=== PATIENT | female | born 1985 ===

== ENCOUNTER 2020-02-16 11:16 | Outpatient (CLI) | payer MEDICAID ==
[~2020-02-16] VITALS: Ht 154.9 cm; Wt 127.3 kg
[2020-02-16 12:07] VITALS: BP 121/79
[2020-02-16 12:11] LABS: MICROSCOPIC NOT IND
[2020-02-16 12:24] LABS: AMPHETAMINE SCREEN, URINE Negative (Negative); BARBITURATE SCREEN, URINE Negative (Negative); BENZODIAZEPINE SCREEN, URINE Negative (Negative); CANNABINOID SCREEN, URINE Negative (Negative); COCAINE SCREEN, URINE Negative (Negative); METHADONE SCREEN, URINE Negative (Negative); OPIATE SCREEN, URINE Negative (Negative)
[2020-02-16 13:46] LABS: BASOPHILS % (AUTO) 0 % (0-1); EOSINOPHILS % (AUTO) 1 % (1-7); LYMPHOCYTES % (AUTO) 18 % (22-44); MEAN CORPUSCULAR HEMOGLOBIN 30.9 pg (27.0-34.8); MEAN CORPUSCULAR HGB CONC 34.1 g/dL (32.4-35.8); MEAN PLATELET VOLUME 9.2 fL (7.4-10.4); MONOCYTES % (AUTO) 9 % (2-9); NEUTROPHILS % (AUTO) 71 % (42-75); PLATELET COUNT 195 x10^3/uL (130-400); RED BLOOD COUNT 4.32 x10^6/uL (3.82-5.3); RED CELL DISTRIBUTION WIDTH 13.6 % (9.6-15.2)
[2020-02-16 14:02] LABS: MD NO
== END 2020-02-16 13:40 | disposition home or self-care (01) ==
LOC: LDOP 11:16
PROVIDERS: ATTEND Obstetrics & Gynecology
DX: O99.513 Diseases of the respiratory system complicating pregnancy, third trimester (principal); O26.893 Other specified pregnancy related conditions, third trimester; R10.9 Unspecified abdominal pain; R53.1 Weakness; R06.02 Shortness of breath; Z3A.33 33 weeks gestation of pregnancy
CPT/HCPCS: 36415; 59025; 80307; 81003; 84112; 84443; 85025; 87086

== ENCOUNTER 2020-03-13 17:41 | Outpatient (CLI) | payer MEDICAID ==
[~2020-03-13] VITALS: Ht 154.9 cm; Wt 128.6 kg
[2020-03-13 17:58] VITALS: BP 125/84
[2020-03-13] MEDS ORDERED: FLUO20CA19 PO (18:38)
[2020-03-13] MEDS ORDERED: PREN1TAB60 PO (18:38)
[2020-03-13 18:42] LABS: MICROSCOPIC INDICATED
[2020-03-13] MEDS ORDERED: LACTATED RINGERS 1,000 ML IVBOLUS ONE (19:00)
[2020-03-13] MEDS ORDERED: LACTATED RINGERS 1,000 ML IV SCH (19:00)
== END 2020-03-13 21:00 | disposition home or self-care (01) ==
LOC: LDOP 17:41
PROVIDERS: ATTEND Obstetrics & Gynecology
DX: O26.893 Other specified pregnancy related conditions, third trimester (principal); R10.9 Unspecified abdominal pain; Z3A.36 36 weeks gestation of pregnancy
CPT/HCPCS: 59025; 81001; 87086; 96360; J7120; 96361

== ENCOUNTER 2020-03-23 08:10 | Inpatient (IN) | payer MEDICAID ==
[~2020-03-23] VITALS: Ht 154.9 cm; Wt 130.0 kg
[~2020-03-23 08:10] MED LIST: FLUO20CA19 PO; PREN1TAB60 PO
[2020-03-23] MEDS ORDERED: CEFAZOLIN 1,000 MG ONE (10:56)
[2020-03-23] MEDS ORDERED: EPHEDRINE 50 MG/ML, 1ML ONE (10:56)
[2020-03-23] MEDS ORDERED: EPINEPHRINE 1 MG/ML, 1ML ONE (10:56)
[2020-03-23] MEDS ORDERED: OXYTOCIN 10 UNITS/ML, 1ML ONE (10:56)
[2020-03-23] MEDS ORDERED: FENTANYL PF 100 MCG/2ML ONE (10:58)
[2020-03-23] MEDS ORDERED: METOCLOPRAMIDE 5 MG/ML, 2ML IV ONE (11:00)
[2020-03-23] MEDS ORDERED: PLEASE ENTER HEIGHT AND WEIGHT MC SCH (11:00)
[2020-03-23] MEDS ORDERED: SODIUM CITRATE/CITRIC ACID 15 ML UDC ONE (11:11)
[2020-03-23] MEDS ORDERED: METOCLOPRAMIDE 5 MG/ML, 2ML ONE (11:11)
[2020-03-23] MEDS ORDERED: OXYTOCIN 30U/ 0.9% NaCL 500ML 500 ML ONE (11:12)
[2020-03-23] MEDS ORDERED: NEWBORN KIT ONE (11:12)
[2020-03-23 11:14] LABS: BASOPHILS % (AUTO) 1 % (0-1); EOSINOPHILS % (AUTO) 2 % (1-7); LYMPHOCYTES % (AUTO) 20 % (22-44); MEAN CORPUSCULAR HEMOGLOBIN 30.5 pg (27.0-34.8); MEAN CORPUSCULAR HGB CONC 33.8 g/dL (32.4-35.8); MEAN PLATELET VOLUME 9.5 fL (7.4-10.4); MONOCYTES % (AUTO) 10 % (2-9); NEUTROPHILS % (AUTO) 68 % (42-75); PLATELET COUNT 173 x10^3/uL (130-400); RED BLOOD COUNT 4.18 x10^6/uL (3.82-5.3); RED CELL DISTRIBUTION WIDTH 13.4 % (9.6-15.2)
[2020-03-23 11:18] VITALS: BP 135/76
[2020-03-23 11:22] LABS: MD NO
[2020-03-23] MEDS ORDERED: KETOROLAC 30 MG/1 ML ONE (12:27)
[2020-03-23] MEDS ORDERED: morphine SULFATE 10 MG/ML, 1ML IVPush PRN (12:30)
[2020-03-23] MEDS ORDERED: PROMETHAZINE 12.5 MG SUPP PR PRN (12:30)
[2020-03-23] MEDS ORDERED: EPHEDRINE 50 MG/ML, 1ML IVPush PRN (12:30)
[2020-03-23] MEDS ORDERED: ONDANSETRON 2MG/ML, 2ML IVPush PRN (12:30)
[2020-03-23] MEDS ORDERED: MEPERIDINE/PF 25MG/0.5ML IVPush PRN (12:30)
[2020-03-23] MEDS ORDERED: LACTATED RINGERS 1,000 ML IVBOLUS ONE (12:30)
[2020-03-23] MEDS ORDERED: SODIUM CITRATE/CITRIC ACID 30 ML UDC PO ONE (12:30)
[2020-03-23] MEDS ORDERED: OXYcodone 5 MG/5 ML ORAL.SOL UDC PO PRN (12:30)
[2020-03-23] MEDS ORDERED: LACTATED RINGERS 1,000 ML IV SCH ×2 (12:30→14:00)
[2020-03-23] MEDS ORDERED: FENTANYL PF 100 MCG/2ML IV PRN (12:30)
[2020-03-23] MEDS ORDERED: ACETAMINOPHEN 325 MG TABLET PO PRN ×2 (12:30→14:00)
[2020-03-23] MEDS: KETOROLAC 30 MG/1 ML IV SCH ×2 (13:30→19:17)
[2020-03-23] MEDS ORDERED: DIPH,PERTUSS(ACELL),TET VAC/PF NC IM-VACC PRN (14:00)
[2020-03-23] MEDS ORDERED: MISOPROSTOL 200 MCG TABLET PR PRN (14:00)
[2020-03-23] MEDS ORDERED: ONDANSETRON 2MG/ML, 2ML IV PRN (14:00)
[2020-03-23] MEDS: LACTATED RINGERS 1,000 ML IV SCH (14:00)
[2020-03-23] MEDS: OXYTOCIN 30U/ 0.9% NaCL 500ML 500 ML IV SCH (14:15)
[2020-03-23] MEDS ORDERED: MEPERIDINE/PF 50 MG/ML ONE (14:17)
[2020-03-23] MEDS ORDERED: morphine SULFATE 10 MG/ML, 1ML ONE (15:14)
[2020-03-23] MEDS ORDERED: OXYcodone IR 5MG TABLET ONE (15:14)
[2020-03-23 16:19] VITALS: BP 100/67
[2020-03-23] MEDS: OXYcodone IR 5MG TABLET PO PRN ×2 (19:09→23:07)
[2020-03-23] MEDS: SIMETHICONE 80 MG CHEW TAB PO PRN (19:17)
[2020-03-23] MEDS: FLUOXETINE HCL 20 MG CAPSULE PO SCH (19:17)
[2020-03-23 20:10] VITALS: BP 115/78
[2020-03-24 00:08] VITALS: BP 128/87
[2020-03-24] MEDS: KETOROLAC 30 MG/1 ML IV SCH ×4 (01:53→20:00)
[2020-03-24 02:18] LABS: BASOPHILS % (AUTO) 0 % (0-1); EOSINOPHILS % (AUTO) 1 % (1-7); LYMPHOCYTES % (AUTO) 17 % (22-44); MEAN CORPUSCULAR HEMOGLOBIN 30.7 pg (27.0-34.8); MEAN CORPUSCULAR HGB CONC 34.1 g/dL (32.4-35.8); MEAN PLATELET VOLUME 10.2 fL (7.4-10.4); MONOCYTES % (AUTO) 7 % (2-9); NEUTROPHILS % (AUTO) 76 % (42-75); PLATELET COUNT 136 x10^3/uL (130-400); RED BLOOD COUNT 3.26 x10^6/uL (3.82-5.3); RED CELL DISTRIBUTION WIDTH 13.3 % (9.6-15.2)
[2020-03-24 02:24] LABS: MD NO
[2020-03-24] MEDS: OXYcodone IR 5MG TABLET PO PRN ×6 (04:08→23:27)
[2020-03-24 04:10] VITALS: BP 118/70
[2020-03-24] MEDS: OXYTOCIN 30U/ 0.9% NaCL 500ML 500 ML IV SCH ×3 (05:45→20:00)
[2020-03-24] MEDS: LACTATED RINGERS 1,000 ML IV SCH ×3 (05:46→20:00)
[2020-03-24 08:00] VITALS: BP 121/84
[2020-03-24] MEDS: IBUPROFEN 600 MG TABLET PO PRN ×3 (08:06→20:46)
[2020-03-24] MEDS: PRENATAL VIT/IRON/FA 1 EACH TABLET PO SCH (08:06)
[2020-03-24] MEDS: DOCUSATE 100 MG CAPSULE PO PRN ×2 (08:06→19:29)
[2020-03-24] MEDS: SIMETHICONE 80 MG CHEW TAB PO PRN ×3 (08:07→20:46)
[2020-03-24 20:00] VITALS: BP 123/75
[2020-03-24] MEDS: FLUOXETINE HCL 20 MG CAPSULE PO SCH (20:47)
[2020-03-25] MEDS: IBUPROFEN 600 MG TABLET PO PRN ×2 (02:40→09:12)
[2020-03-25] MEDS: OXYcodone IR 5MG TABLET PO PRN ×3 (03:35→13:40)
[2020-03-25] MEDS: OXYTOCIN 30U/ 0.9% NaCL 500ML 500 ML IV SCH (06:00)
[2020-03-25] MEDS: LACTATED RINGERS 1,000 ML IV SCH (06:00)
[2020-03-25 09:10] VITALS: BP 122/89
[2020-03-25] MEDS: SIMETHICONE 80 MG CHEW TAB PO PRN (09:12)
[2020-03-25] MEDS: DOCUSATE 100 MG CAPSULE PO PRN (09:12)
[2020-03-25] MEDS: PRENATAL VIT/IRON/FA 1 EACH TABLET PO SCH (09:12)
[2020-03-25] MEDS ORDERED: IBUP-1222 PO (11:42)
[2020-03-25] MEDS ORDERED: DOCU100C33 PO (11:42)
[2020-03-25] MEDS ORDERED: OXYC-302 PO (11:43)
== END 2020-03-25 14:00 | disposition home or self-care (01) | DRG 788 ==
LOC: LDIP 10:47 → 2NW 15:37
PROVIDERS: ADMIT Obstetrics & Gynecology; ATTEND Obstetrics & Gynecology
PROC: 10D00Z1 Extraction of Products of Conception, Low, Open Approach (ICD-10-PCS; principal; 2020-03-23)
DX: O99.214 Obesity complicating childbirth (principal); O99.344 Other mental disorders complicating childbirth; E66.01 Morbid (severe) obesity due to excess calories; F41.9 Anxiety disorder, unspecified; F42.9 Obsessive-compulsive disorder, unspecified; O34.211 Maternal care for low transverse scar from previous cesarean delivery; O40.3XX0 Polyhydramnios, third trimester, not applicable or unspecified; Z20.828 Contact with and (suspected) exposure to other viral communicable diseases; Z82.49 Family history of ischemic heart disease and other diseases of the circulatory system; Z37.0 Single live birth; Z3A.39 39 weeks gestation of pregnancy; Z83.3 Family history of diabetes mellitus; Z87.891 Personal history of nicotine dependence; Z88.2 Allergy status to sulfonamides; Z88.5 Allergy status to narcotic agent
CPT/HCPCS: 36415; 85025; 86592; 86850; 86900; 87635; G0378; J0171; J0690; J1885; J2175; J3010; J2270; J2590; J2765; J7120